=== PATIENT | female | born 1955 ===

== ENCOUNTER 2020-12-05 18:17 | Emergency (ER) | payer MEDICARE, OTHER | END 2020-12-05 20:55 | disposition home or self-care (01) | LOC: FER 18:17 | DX: S93.402A Sprain of unspecified ligament of left ankle, initial encounter (principal); S93.602A Unspecified sprain of left foot, initial encounter; I10 Essential (primary) hypertension; Z98.84 Bariatric surgery status; W07.XXXA Fall from chair, initial encounter; Y92.009 Unspecified place in unspecified non-institutional (private) residence as the place of occurrence of the external cause | CPT/HCPCS: 73610; 73630 ==